=== PATIENT | male | born 1965 | race Caucasian/White ===

== ENCOUNTER 2022-01-13 19:17 | Emergency (ER) | payer BC ==
[2022-01-13 20:02] LABS: Absolute Neutrophil Ct (ANC) 6.97 x10^3/uL (1.4-6.9); Basophil (Absolute #) 0.02 x10^3/uL (0-0.4); Eosinophil % 1.6 % (0.00-5.0); Eosinophil (Absolute #) 0.14 x10^3/uL (0-0.5); Hematocrit 45.3 % (42-50); Lymphocyte (Absolute #) 0.95 x10^3/uL (1.0-4.6); Lymphocytes % 10.8 % (24.0-44.0); Mean Cell Volume 86.1 fL (78-100); Mean Corpuscular Hemoglobin 28.5 pg (26-32); Mean Corpuscular Hgb Concent. 33.1 g/dL (32-36); Mean Platelet Volume 9.7 fL (7.5-11.0); Monocyte (Absolute #) 0.71 x10^3/uL (0.0-1.3); Neutrophil % 79.1 % (36.0-66.0); Platelet Count 265 x10^3/uL (150-450); Red Blood Count 5.26 x10^6/uL (4.1-5.6); Red Cell Distribution Width 12.9 % (11.5-14.0); White Blood Count 8.8 x10^3/uL (4.0-10.5)
[2022-01-13 20:14] LABS: ALBUMIN 4.1 g/dL (3.5-5.0); ALKALINE PHOSPHATASE 90 U/L (38-126); ANION GAP 12.1 MEQ/L (5-15); BLOOD UREA NITROGEN 15 mg/dL (9-20); CHLORIDE 100 mmol/L (98-107); Calcium 9.3 mg/dL (8.4-10.2); Carbon Dioxide 31 mmol/L (22-30); Creatinine 1 0.87 mg/dL (0.66-1.25); EST GLOMERULAR FILTRATION RATE > 60.0 ML/MIN; Glucose 103 mg/dL (74-106); Potassium 3.8 mmol/L (3.5-5.1); SGOT/AST 27 U/L (17-59); SGPT/ALT 25 U/L (0-50); SODIUM 139 mmol/L (137-145); Total Protein 7.9 g/dL (6.3-8.2)
--- NOTE | 2022-01-13 20:18 | ERPHSYRPT ---
- History of Present Illness Source: patient Exam Limitations: no limitations Patient Subjective Stated Complaint: I fell last Sunday down some steps and the last 2 days my right leg has gotten tight and swollen. Triage Nursing Assessment: Pt c/o rt lower ext edema which occured about 2 days ago. Pt fell last Sunday and has a scrape to lateral rt lower ext and rt kn ee. Rt lower leg has gotten tight and swollen, pt denies any pain when walking on it, only has tenderness when touching it. Hx DVt to rt lower ext 2011. Physician History: 56 yo wm w R calf edema, erythema, and pain x 2-3 days. Pt states that he fell 1 week ago and has several abrasions on his lower leg. He also has a h/o DVT in his RLE in 2011 after R achilles surgery. He is not on an anticoagulant. Chest pain/dyspnea/fever are all denied. Method of Injury: fell Occurred: other (1wk/3days) Quality: aching Severity of Pain-Max: moderate Severity of Pain-Current: moderate Lower Extremities Pain: foot: right, ankle: right Modifying Factors: Improves With: nothing, movement Associated Symptoms: none Allergies/Adverse Reactions: oxytetracycline [From Terramycin] Allergy (Mild, Verified 01/13/22 19:35) Hives oxytetracycline HCl [From Terramycin] Allergy (Mild, Verified 01/13/22 19:35) Hives Home Medications: Losartan/Hydrochlorothiazide [Losartan-Hctz 50-12.5 mg Tab] 25 tab PO DAILY 12/27/11 [History] Aspirin EC 81 mg [Ecotrin 81 mg] 162 mg PO DAILY 10/28/12 [History] Amlodipine Besylate 5 mg [Norvasc 5 mg] 5 mg PO DAILY 01/13/22 [History] Cholecalciferol (Vitamin D3) [Vitamin D3] 125 mcg PO DAILY 01/13/22 [History] Fexofenadine HCl [Lia Allergy] 180 mg PO DAILY 01/13/22 [History] Hx Tetanus, Diphtheria Vaccination/Date Given: No Hx Influenza Vaccination/Date Given: No Hx Pneumococcal Vaccination/Date Given: No Immunizations Up to Date: No Travel Risk - International Travel Have you traveled outside of the country in past 3 weeks: No - Coronavirus Screening Are you exhibiting any of the following symptoms?: No Close contact with a COVID-19 positive Pt in past 14-21 Days: No - Vaccine Status Have you recieved a Covid-19 vaccination: Yes 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 - Review of Systems Constitutional: No Symptoms Eyes: No Symptoms Ears, Nose, & Throat: No Symptoms Respiratory: No Symptoms Cardiac: No Symptoms Abdominal/Gastrointestinal: No Symptoms Genitourinary Symptoms: No Symptoms Musculoskeletal: Injury Skin: No Symptoms, Cellulitis Neurological: No Symptoms Psychological: No Symptoms Endocrine: No Symptoms Hematologic/Lymphatic: No Symptoms Immunological/Allergic: No Symptoms - Past Medical History Pertinent Past Medical History: Yes Neurological History: No Pertinent History ENT History: No Pertinent History Cardiac History: Arrhythmia, Hypertension Respiratory History: No Pertinent History Endocrine Medical History: No Pertinent History Musculoskeletal History: Degenerative Disk Disease GI Medical History: Hernia History: No Pertinent History Psycho-Social History: No Pertinent History Male Reproductive Disorders: No Pertinent History - Past Surgical History Past Surgical History: Yes Neuro Surgical History: No Pertinent History Cardiac: No Pertinent History Respiratory: No Pertinent History Gastrointestinal: Hernia Repair Genitourinary: No Pertinent History Musculoskeletal: Orthopedic Surgery Male Surgical History: No Pertinent History Other Surgical History: 7 years old belly button repaired. rt wrist lt leg achilles tendon repair - Social History Smoking Status: Never smoker Exposure to second hand smoke: No Alcohol Use: Socially Drug Use: none Patient Lives Alone: Yes Significant Family History: no pertinent family hx - Nursing Vital Signs Nursing Vital Signs: Initial Vital Signs Temperature 98.2 F 01/13/22 19:23 Pulse Rate 72 01/13/22 19:23 Respiratory Rate 20 01/13/22 19:23 Blood Pressure 165/98 01/13/22 19:23 O2 Sat by Pulse Oximetry 98 01/13/22 19:23 Pain Scale Pain Intensity 0 Hypertensive - Physical Exam General Appearance: no apparent distress Eyes, Ears, Nose, Throat Exam: normal ENT inspection, TMs normal, pharynx normal, moist mucous membranes Neck Exam: normal inspection, non-tender, supple, full range of motion, No Brudzinski, No Kernig's, No meningismus, No carotid bruit Cardiovascular/Respiratory Exam: normal breath sounds, regular rate/rhythm, heart sounds normal Gastrointestinal/Abdominal Exam: non-tender, soft, no organomegaly Back Exam: normal inspection, normal range of motion, No CVA tenderness Hips Exam: bilateral: non-tender, normal inspection, normal range of motion, no evidence of injury Legs Exam: right leg: soft tissue tenderness (R pretibial edema, erythema, and TTP) Knees Exam: bilateral knee: non-tender, normal inspection, normal range of motion, no evidence of injury Ankle Exam: right ankle: swelling (Mild edema, erythema, and TTP) Foot Exam: bilateral foot: non-tender, normal inspection, normal range of motion, no evidence of injury Neuro/Tendon Exam: normal sensation, normal motor functions, normal tendon functions, responds to pain, no evidence tendon injury, No motor deficit, No sensory deficit Mental Status Exam: alert, oriented x 3, cooperative Skin Exam: other (R pre-tibial erythema) SpO2 Interpretation: normal SpO2: 98 O2 Delivery: Room Air - Course Nursing assessment & vital signs reviewed: Yes - Radiology Ultrasound Exam Venous Lower Extremity Ultrasound: Other (Neg for DVT per Tech) Ordered Tests: Active Orders 24 hr Category Date Time Status LOWER LEG Stat Exams 01/13/22 19:55 Completed VENOUS UNILAT/LIMITED EXTREMIT [US] Stat Exams 01/13/22 19:53 Taken CBC W DIFF Stat Lab 01/13/22 19:50 Completed CMP Stat Lab 01/13/22 19:50 Completed Lactic Acid Stat Lab 01/13/22 20:25 Completed Medication Summary Discontinued Medications Generic Name Dose Route Start Last Admin Trade Name Quinton PRN Reason Stop Dose Admin Amoxicillin/Clavulanate Potassium 875 mg 01/13/22 21:31 01/13/22 21:36 Amox Tr/Potassium Clavulanate 875 Mg Tablet PO 01/13/22 21:32 875 mg STAT ONE Administration Amoxicillin/Clavulanate Potassium Confirm 01/13/22 21:36 Amox Tr/Potassium Clavulanate 875 Mg Tablet Administered 01/13/22 21:37 Dose 875 mg .ROUTE .STK-MED ONE Trimethoprim/Sulfamethoxazole 1 tab 01/13/22 21:31 01/13/22 21:37 Smz/Tmp Ds Tablet 1 Tablet PO 01/13/22 21:32 1 tab STAT STA Administration Trimethoprim/Sulfamethoxazole Confirm 01/13/22 21:36 Smz/Tmp Ds Tablet 1 Tablet Administered 01/13/22 21:37 Dose 1 tab PO .STK-MED ONE Lab/Rad Data: Laboratory Result Diagrams 01/13/22 19:50 01/13/22 19:50 Laboratory Results 01/13/22 01/13/22 01/13/22 Range/Units 20:25 19:50 19:50 WBC 8.8 (4.0-10.5) x10^3/uL RBC 5.26 (4.1-5.6) x10^6/uL Hgb 15.0 (12.5-18.0) g/dL Hct 45.3 (42-50) % MCV 86.1 (78-100) fL MCH 28.5 (26-32) pg MCHC 33.1 (32-36) g/dL RDW 12.9 (11.5-14.0) % Plt Count 265 (150-450) x10^3/uL MPV 9.7 (7.5-11.0) fL Gran % 79.1 H (36.0-66.0) % Immature Gran % (Auto) 0.3 (0.00-0.4) % Nucleat RBC Rel Count 0.0 (0.00-0.1) % Eos # (Auto) 0.14 (0-0.5) x10^3/uL Immature Gran # (Auto) 0.03 (0.00-0.03) x10^3u/L Absolute Lymphs (auto) 0.95 L (1.0-4.6) x10^3/uL Absolute Monos (auto) 0.71 (0.0-1.3) x10^3/uL Absolute Nucleated RBC 0.00 (0.00-0.01) x10^3u/L Lymphocytes % 10.8 L (24.0-44.0) % Monocytes % 8.0 (0.0-12.0) % Eosinophils % 1.6 (0.00-5.0) % Basophils % 0.2 (0.0-0.4) % Absolute Granulocytes 6.97 H (1.4-6.9) x10^3/uL Basophils # 0.02 (0-0.4) x10^3/uL Sodium 139 (137-145) mmol/L Potassium 3.8 (3.5-5.1) mmol/L Chloride 100 (98-107) mmol/L Carbon Dioxide 31 H (22-30) mmol/L Anion Gap 12.1 (5-15) MEQ/L BUN 15 (9-20) mg/dL Creatinine 0.87 (0.66-1.25) mg/dL Estimated GFR > 60.0 ML/MIN Glucose 103 (74-106) mg/dL Lactic Acid 1.2 (0.4-2.0) Calcium 9.3 (8.4-10.2) mg/dL Total Bilirubin 2.10 H (0.2-1.3) mg/dL AST 27 (17-59) U/L ALT 25 (0-50) U/L Alkaline Phosphatase 90 (38-126) U/L Serum Total Protein 7.9 (6.3-8.2) g/dL Albumin 4.1 (3.5-5.0) g/dL - Progress Progress: improved Progress Note: 01/13/22 21:33 Bactrim DS po x1/Augmentin 875mg po x1 01/13/22 22:26 Pt's BP decreased during stay Counseled pt/family regarding: lab results, diagnosis, need for follow-up, rad results - Departure Departure Disposition: Home Clinical Impression: Cellulitis Condition: Stable Critical Care Time: No Referrals: CORNELIUS MELÉNDEZ MD [Primary Care Provider] - Follow up/PCP as directed Instructions: Cellulitis (Skin Infection), Adult ED Additional Instructions: Elevate leg Continue with Augmentin and bactrim Follow up with your family MD on Sunday Return to ER for increasing pain/redness/swelling/temperature greater than 100.5 Prescriptions: Amox Tr/Potass Clav. 875 mg [Augmentin 875-125 Tablet] 1 each PO BID 10 Days #20 tablet Sulfamethoxazole/Trimethoprim [Bactrim Ds Tablet] 1 each PO BID 10 Days #20 tablet
[2022-01-13] MEDS ORDERED: Augmentin 875-125 Tablet PO ONE (21:31)
[2022-01-13] MEDS ORDERED: BACTRIM DS TABLET PO STA (21:31)
[2022-01-13] MEDS ORDERED: Augmentin 875-125 Tablet ONE (21:36)
[2022-01-13] MEDS ORDERED: BACTRIM DS TABLET PO ONE (21:36)
[2022-01-13 21:57] VITALS: BP 163/90; PULSE 75
[2022-01-13 22:26] VITALS: O2SAT 98
--- NOTE | 2022-01-13 22:27 | XRAY ---
Indication: Swelling and erythema following fall. Comparison: None 2 view right lower leg demonstrates mild/moderate tricompartmental knee degenerative changes, small spurring tibial tuberosity, large posterior/small plantar heel spurs, and diffuse lower leg swelling/edema. No other bony, articular, or soft tissue abnormalities.
--- NOTE | 2022-01-13 22:33 | XRAY ---
Indication: Pain and swelling. Two-dimensional sonogram and color Doppler imaging of the major venous vessels of the right leg performed. Comparison: October 28, 2012 No thrombus seen in the examined deep venous vessels of the right leg including greater saphenous vein. Veins demonstrate normal compressibility. Venous waveforms are normal with and without augmentation. Impression: Right leg negative for DVT. Comment: Preliminary report given.
== END 2022-01-13 21:55 | disposition home or self-care (01) ==
LOC: ED 19:17
DX: L03.115 Cellulitis of right lower limb (principal); M79.661 Pain in right lower leg; Z86.718 Personal history of other venous thrombosis and embolism; I10 Essential (primary) hypertension; Z79.899 Other long term (current) drug therapy
CPT/HCPCS: 36000; 36415; 73590; 80053; 83605; 85025; 93971; 99284; A9270-GY

== ENCOUNTER 2023-08-09 07:14 | Day surgery (SDC) | payer BC ==
--- NOTE | 2023-08-02 15:02 | HP ---
DATE OF SURGERY: 08/09/2023 HISTORY OF PRESENT ILLNESS: The patient is a 57-year-old male presents with low abdominal pain. He had a CT scan showing periumbilical hernia, hiatal hernia and a tiny right inguinal hernia. He has an incarcerated ventral hernia bulge with tenderness. He has a history of ventral hernia repair with mesh in 2015. He has some lower abdominal pain after treatment for some recent diverticulitis. He has not had a colonoscope to date. PAST MEDICAL HISTORY: Gout. Hypertension. Diverticulitis. Deep vein thrombosis. First degree AV block. PAST SURGICAL HISTORY: Wrist surgery. Ventral hernia repair. Achilles tendon repair. ALLERGIES: OXYTETRACYCLINE. MEDICATIONS: Zinc, Lisinopril, fexofenadine, aspirin, amlodipine, allopurinol. FAMILY HISTORY: None. SOCIAL HISTORY: No smoking. Occasional alcohol. REVIEW OF SYSTEMS: CONSTITUTIONAL: Denies fever or chills. CHEST: Denies shortness of breath. CVS: Denies chest pain. ABDOMEN: Reports abdominal pain. PHYSICAL EXAMINATION: GENERAL: No acute distress. CHEST: Nonlabored. No shortness of breath. CVS: Regular rate and rhythm. ABDOMEN: Soft with incarcerated ventral hernia. IMPRESSION: 1) Recent diverticulitis. 2) Incarcerated ventral hernia screening. PLAN: Will set up colonoscopy with Dr. Jesus Gomes. I also gave this gentleman Becky and Sejal before his exam. As dictated by Aleyda Coronel NP.
[2023-08-09] MEDS ORDERED: Lactated Ringers 1,000 ML IV SCH (07:30)
[2023-08-09] MEDS ORDERED: Lactated Ringers 1,000 ML IV ONE (07:46)
[2023-08-09] MEDS ORDERED: Versed 2 MG/2 ML Injection ONE (09:57)
[2023-08-09] MEDS ORDERED: DIPRIVAN 200 MG/20 ML IV ONE ×2 (09:57→10:05)
[2023-08-09] MEDS ORDERED: GlucaGen 1 MG ONE (10:06)
[2023-08-09 10:17] VITALS: TEMP 98.5
[2023-08-09 10:24] VITALS: RESP 16
[2023-08-09 10:32] VITALS: BP 126/80; O2SAT 96
--- NOTE | 2023-08-09 10:33 | OP ---
SURGERY DATE/TIME: 08/09/2023 1003 PREOPERATIVE DIAGNOSIS: Abdominal pain. POSTOPERATIVE DIAGNOSIS: Abdominal pain. PROCEDURE: Colonoscopy complete to cecum. SURGEON: Jesus Gomes M.D. ANESTHESIA: MAC. INDICATION: The patient does have incarcerated ventral hernia which we are considering working on. He has a small inguinal hernia of no significance. He is quite solid. He has not had a recent colonoscopic examination. He has some unexplained abdominal pain. DESCRIPTION OF PROCEDURE: He was taken to endoscopy. Left lateral decubitus position. Anal digital examination satisfactory. Scope introduced. The scope advanced to the cecum. Base of the cecum, ileocecal valve, appendiceal orifice was normal. Ascending 4 inches up in the ileocecal valve was a 1.2 cm polyp was taken with hot biopsy forceps to extinction this is a very nice polyp. Hepatic flexure, transverse, splenic, descending, sigmoid, rectum, anus satisfactory. Follow up five years. Return to office in two weeks for path on his polyp and consideration of ventral hernia.
[2023-08-09 10:41] VITALS: PULSE 62
== END 2023-08-09 10:41 | disposition home or self-care (01) ==
LOC: SDC 07:14
PROVIDERS: ATTEND Surgery
DX: D12.2 Benign neoplasm of ascending colon (principal); R10.32 Left lower quadrant pain; K43.6 Other and unspecified ventral hernia with obstruction, without gangrene
CPT/HCPCS: 93005; J1610; J2250; J2704

== ENCOUNTER 2023-09-20 11:40 | Emergency (ER) | payer BC ==
[2023-09-20 12:04] VITALS: RESP 20; TEMP 98.8
--- NOTE | 2023-09-20 12:16 | ERPHSYRPT ---
- History of Present Illness Time Seen by Provider: 09/20/23 11:46 Historian: patient Exam Limitations: no limitations Patient Subjective Stated Complaint: C/O abdominal pain that started this am prior to going into work that has become worse. Patient left work to come to the ER. He describes the pain as constant cramping. Denies diarrhea. Vomitted X 1 prior to coming into the ER. Triage Nursing Assessment: Patient ambulated back to ER without difficulties. He is alert and oriented. No SOB. Skin tone normal but face is flushed. BRANT JOHNSON. Physician History: 58 years old male with history of hypertension, irritable bowel syndrome, abdominal wall hernias presented in the ER with complains of lower abdominal/periumbilical area pain sudden onset this morning prior to going to work. Gradual worsening, currently 8/10 intensity, aggravated with palpation movements and associated nausea with 1 episode of nonprojectile, nonbilious vomiting without hematemesis. Denies any diarrhea. Patient reports taking his dicyclomine which did not help. Denies any fever or chills. No abdominal distention. Allergies/Adverse Reactions: oxytetracycline [From Terramycin] Allergy (Mild, Verified 09/20/23 11:51) Hives oxytetracycline HCl [From Terramycin] Allergy (Mild, Verified 09/20/23 11:51) Hives Home Medications: Amlodipine Besylate 5 mg [Norvasc 5 mg] 5 mg PO DAILY 01/13/22 [History] Allopurinol 300 mg [Zyloprim 300 mg] 300 mg PO HS 07/10/23 [History] Lisinopril/Hydrochlorothiazide [Lisinopril-Hctz 20-25 mg Tab] 1 each PO DAILY 07/10/23 [History] Dicyclomine HCl 20 mg [Bentyl 20 mg] 1 tab PO QID 09/20/23 [History] Hx Tetanus, Diphtheria Vaccination/Date Given: Yes Hx Influenza Vaccination/Date Given: No Hx Pneumococcal Vaccination/Date Given: No Immunizations Up to Date: Yes Travel Risk - International Travel Have you traveled outside of the country in past 3 weeks: No - Coronavirus Screening Are you exhibiting any of the following symptoms?: No Close contact with a COVID-19 positive Pt in past 14-21 Days: No - Vaccine Status Have you recieved a Covid-19 vaccination: Yes [employer]: Moderna - Vaccination Dates Date of 2cond Vaccination (if applicable): ? - Review of Systems Constitutional: No Symptoms Eyes: No Symptoms Ears, Nose, & Throat: No Symptoms Respiratory: No Symptoms Cardiac: No Symptoms Abdominal/Gastrointestinal: Abdominal Pain, Nausea, Vomiting Genitourinary Symptoms: No Symptoms Musculoskeletal: No Symptoms Skin: No Symptoms Neurological: No Symptoms Psychological: No Symptoms Endocrine: No Symptoms Hematologic/Lymphatic: No Symptoms Immunological/Allergic: No Symptoms - Past Medical History Pertinent Past Medical History: Yes Neurological History: No Pertinent History ENT History: No Pertinent History Cardiac History: Hypertension Respiratory History: No Pertinent History Endocrine Medical History: No Pertinent History Musculoskeletal History: Degenerative Disk Disease GI Medical History: GERD, Hernia History: No Pertinent History Psycho-Social History: No Pertinent History Male Reproductive Disorders: No Pertinent History - Past Surgical History Past Surgical History: Yes Neuro Surgical History: No Pertinent History Cardiac: No Pertinent History Respiratory: No Pertinent History Gastrointestinal: Hernia Repair Genitourinary: No Pertinent History Musculoskeletal: Orthopedic Surgery Male Surgical History: No Pertinent History Other Surgical History: 7 years old belly button repaired. rt wrist lt leg achilles tendon repair, colonscopy on 08/09/23 - Social History Smoking Status: Never smoker Exposure to second hand smoke: No Alcohol Use: Socially Drug Use: none Patient Lives Alone: Yes Significant Family History: no pertinent family hx - Nursing Vital Signs Nursing Vital Signs: Initial Vital Signs Temperature 98.8 F 09/20/23 11:41 Pulse Rate 85 09/20/23 11:41 Respiratory Rate 20 09/20/23 11:41 Blood Pressure 179/105 09/20/23 11:41 O2 Sat by Pulse Oximetry 95 09/20/23 11:41 Pain Scale Pain Intensity 9 - Physical Exam General Appearance: no apparent distress, alert Eye Exam: PERRL/EOMI Ears, Nose, Throat Exam: normal ENT inspection Neck Exam: normal inspection Respiratory Exam: normal breath sounds, lungs clear Cardiovascular Exam: regular rate/rhythm, normal heart sounds Gastrointestinal/Abdomen Exam: normal bowel sounds, tenderness (Lower abdomen especially in the right lower quadrant. Mild guarding), guarding Back Exam: normal inspection, normal range of motion Extremity Exam: normal inspection, normal range of motion Neurologic Exam: alert, oriented x 3, cooperative Skin Exam: normal color SpO2 Interpretation: normal SpO2: 97 O2 Delivery: Room Air Ordered Tests: Active Orders 24 hr Category Date Time Status IV Insertion STAT Care 09/20/23 12:11 Active NPO (ED) STAT Care 09/20/23 12:11 Active ABDOMEN AND PELVIS W CONTRAST [CT] Stat Exams 09/20/23 12:11 Completed CBC W DIFF Stat Lab 09/20/23 12:20 Completed CMP Stat Lab 09/20/23 12:20 Completed LIPASE Stat Lab 09/20/23 12:20 Completed Lactic Acid Stat Lab 09/20/23 12:25 Completed UA W/RFX UR CULTURE Stat Lab 09/20/23 14:06 Completed Medication Summary Discontinued Medications Generic Name Dose Route Start Last Admin Trade Name Freq PRN Reason Stop Dose Admin Sodium Chloride 1,000 mls @ 999 mls/hr 09/20/23 12:11 09/20/23 14:11 Sodium Chloride 0.9% 1000 Ml IV 09/20/23 13:11 Infused .Q1H1M STA Infusion Sodium Chloride Confirm 09/20/23 12:19 Sodium Chloride 0.9% 1000 Ml Administered 09/20/23 12:20 Dose 1,000 mls @ ud .ROUTE .STK-MED ONE Morphine Sulfate 4 mg 09/20/23 12:11 09/20/23 12:27 Morphine Sulfate 4 Mg/Ml Injection IV 09/20/23 12:12 4 mg STAT ONE Administration Morphine Sulfate Confirm 09/20/23 12:19 Morphine Sulfate 4 Mg/Ml Injection Administered 09/20/23 12:20 Dose 4 mg .ROUTE .STK-MED ONE Ondansetron HCl 4 mg 09/20/23 12:11 09/20/23 12:25 Ondansetron Hcl 4 Mg/2 Ml Vial IV 09/20/23 12:12 4 mg STAT ONE Administration Ondansetron HCl Confirm 09/20/23 12:19 Ondansetron Hcl 4 Mg/2 Ml Vial Administered 09/20/23 12:20 Dose 4 mg .ROUTE .STK-MED ONE Lab/Rad Data: Laboratory Result Diagrams 09/20/23 12:20 09/20/23 12:20 Laboratory Results 09/20/23 09/20/23 09/20/23 Range/Units 14:06 12:25 12:20 WBC (4.0-10.5) x10^3/uL RBC (4.1-5.6) x10^6/uL Hgb (12.5-18.0) g/dL Hct (42-50) % MCV (78-100) fL MCH (26-32) pg MCHC (32-36) g/dL RDW (11.5-14.0) % Plt Count (150-450) x10^3/uL MPV (7.5-11.0) fL Gran % (36.0-66.0) % Immature Gran % (Auto) (0.00-0.4) % Nucleat RBC Rel Count (0.00-0.1) % Eos # (Auto) (0-0.5) x10^3/uL Immature Gran # (Auto) (0.00-0.03) x10^3u/L Absolute Lymphs (auto) (1.0-4.6) x10^3/uL Absolute Monos (auto) (0.0-1.3) x10^3/uL Absolute Nucleated RBC (0.00-0.01) x10^3u/L Lymphocytes % (24.0-44.0) % Monocytes % (0.0-12.0) % Eosinophils % (0.00-5.0) % Basophils % (0.0-0.4) % Absolute Granulocytes (1.4-6.9) x10^3/uL Basophils # (0-0.4) x10^3/uL Sodium 137 (135-145) mmol/L Potassium 3.5 (3.5-5.1) mmol/L Chloride 101 (98-107) mmol/L Carbon Dioxide 24 (22-30) mmol/L Anion Gap 16.4 H (5-15) MEQ/L BUN 16 (9-20) mg/dL Creatinine 0.75 (0.66-1.25) mg/dL Estimated GFR 105.9 ML/MIN Glucose 128 H (74-106) mg/dL Lactic Acid 1.3 (0.4-2.0) Calcium 9.2 (8.4-10.2) mg/dL Total Bilirubin 1.70 H (0.2-1.3) mg/dL AST 28 (17-59) U/L ALT 32 (0-50) U/L Alkaline Phosphatase 102 (38-126) U/L Serum Total Protein 7.9 (6.3-8.2) g/dL Albumin 4.5 (3.5-5.0) g/dL Lipase 90 (23-300) U/L Urine Color Yellow (Yellow) Urine Appearance Clear (Clear) Urine pH 5.5 (4.6-8.0) Ur Specific [place] 1.025 (1.005-1.030) Urine Protein Negative (Negative) Urine Glucose (UA) Negative (Negative) mg/dL Urine Ketones Negative (Negative) Urine Blood Negative (Negative) Urine Nitrite Negative (Negative) Urine Bilirubin Negative (Negative) Urine Urobilinogen 0.2 (0.2) mg/dL Ur Leukocyte Esterase Negative (Negative) U Hyaline Cast (Auto) NONE SEEN (0-2) /LPF Urine Microscopic RBC 0-2 (0-5) /HPF Urine Microscopic WBC 0-2 (0-5) /HPF Ur Epithelial Cells None Seen (None Seen) /HPF Urine Bacteria None Seen (None Seen) /HPF Urine Culture Reflexed NO (NO) 09/20/23 Range/Units 12:20 WBC 8.8 (4.0-10.5) x10^3/uL RBC 5.93 H (4.1-5.6) x10^6/uL Hgb 16.9 (12.5-18.0) g/dL Hct 49.7 (42-50) % MCV 83.8 (78-100) fL MCH 28.5 (26-32) pg MCHC 34.0 (32-36) g/dL RDW 12.6 (11.5-14.0) % Plt Count 274 (150-450) x10^3/uL MPV 9.5 (7.5-11.0) fL Gran % 80.8 H (36.0-66.0) % Immature Gran % (Auto) 0.3 (0.00-0.4) % Nucleat RBC Rel Count 0.0 (0.00-0.1) % Eos # (Auto) 0.19 (0-0.5) x10^3/uL Immature Gran # (Auto) 0.03 (0.00-0.03) x10^3u/L Absolute Lymphs (auto) 1.01 (1.0-4.6) x10^3/uL Absolute Monos (auto) 0.43 (0.0-1.3) x10^3/uL Absolute Nucleated RBC 0.00 (0.00-0.01) x10^3u/L Lymphocytes % 11.5 L (24.0-44.0) % Monocytes % 4.9 (0.0-12.0) % Eosinophils % 2.2 (0.00-5.0) % Basophils % 0.3 (0.0-0.4) % Absolute Granulocytes 7.12 H (1.4-6.9) x10^3/uL Basophils # 0.03 (0-0.4) x10^3/uL Sodium (135-145) mmol/L Potassium (3.5-5.1) mmol/L Chloride (98-107) mmol/L Carbon Dioxide (22-30) mmol/L Anion Gap (5-15) MEQ/L BUN (9-20) mg/dL Creatinine (0.66-1.25) mg/dL Estimated GFR ML/MIN Glucose (74-106) mg/dL Lactic Acid (0.4-2.0) Calcium (8.4-10.2) mg/dL Total Bilirubin (0.2-1.3) mg/dL AST (17-59) U/L ALT (0-50) U/L Alkaline Phosphatase (38-126) U/L Serum Total Protein (6.3-8.2) g/dL Albumin (3.5-5.0) g/dL Lipase (23-300) U/L Urine Color (Yellow) Urine Appearance (Clear) Urine pH (4.6-8.0) Ur Specific [place] (1.005-1.030) Urine Protein (Negative) Urine Glucose (UA) (Negative) mg/dL Urine Ketones (Negative) Urine Blood (Negative) Urine Nitrite (Negative) Urine Bilirubin (Negative) Urine Urobilinogen (0.2) mg/dL Ur Leukocyte Esterase (Negative) U Hyaline Cast (Auto) (0-2) /LPF Urine Microscopic RBC (0-5) /HPF Urine Microscopic WBC (0-5) /HPF Ur Epithelial Cells (None Seen) /HPF Urine Bacteria (None Seen) /HPF Urine Culture Reflexed (NO) - Progress Progress: improved, re-examined Progress Note: 09/20/23 16:07 58 years old is evaluated for abdominal pain. He is given symptomatic treatment with morphine and fluids, on reevaluation his pain is completely resolved. Workup showed normal white count, fairly unremarkable chemistries, no UTI. I have obtained CT abdomen pelvis with contrast which is negative for any obstruction/incarcerated hernia, does have fat-containing periumbilical hernia with minimal inflammation but patient pain is more in the lower abdomen. Has no other acute intra-abdominal/pelvic findings but chronic. I believe patient has previously surgeries done and probably have some adhesions which is causing his pain. At this point I do not think has any acute emergency that needs immediate surgical consultation. Patient is following up with Dr. Gomes group and per him is being planned to have laparoscopy for further evaluation of this pain as it has been going on for quite some time. I have recommended taking Tylenol ibuprofen and keep appointment with general surgery. At this point I do not think he needs any other workup in the ER and is being discharged. Discussed signs symptoms of worsening needing return to ER which she seems understanding. Counseled pt/family regarding: lab results, diagnosis, need for follow-up, rad results Medical Desision Making - Diagnostic Testing Diagnostic test were ordered, analyzed, and reviewed by me: Yes Radiological Interpretation: Reviewed by me - Risk of complications The pt has a mod risk of morbidity or mortality based on: Need for prescription drug management - Departure Departure Disposition: Home Clinical Impression: Lower abdominal pain, Umbilical hernia without obstruction or gangrene Condition: Stable Critical Care Time: No Referrals: CORNELIUS MELÉNDEZ MD [Primary Care Provider] - Follow up with PCP 1 day MARY GOMES MD [ACTIVE STAFF] - Follow up/PCP as directed (Call in the morning for appointment for reevaluation) Instructions: Severe Abdominal Pain, Adult (DC) Additional Instructions: Take Tylenol/ibuprofen as needed for pain. Follow-up with primary care and general surgery for reevaluation. Return to ER for intractable abdominal pain, nausea vomiting/fever chills etc. Prescriptions: Ibuprofen 600 mg PO Q6HPRN PRN 10 Days #20 tablet PRN Reason: Pain
[2023-09-20] MEDS ORDERED: Zofran 4 MG/2 ML VIAL ONE (12:19)
[2023-09-20] MEDS ORDERED: Sodium Chloride 0.9% 1000 ML 1,000 ML ONE (12:19)
[2023-09-20] MEDS ORDERED: MORPHINE SULFATE 4 MG INJ ONE (12:19)
[2023-09-20] MEDS: Sodium Chloride 0.9% 1000 ML 1,000 ML IV STA (12:22)
[2023-09-20] MEDS: Zofran 4 MG/2 ML VIAL IV ONE (12:25)
[2023-09-20 12:27] LABS: Absolute Neutrophil Ct (ANC) 7.12 x10^3/uL (1.4-6.9); BASOPHIL % 0.3 % (0.0-0.4); Basophil (Absolute #) 0.03 x10^3/uL (0-0.4); Eosinophil % 2.2 % (0.00-5.0); Eosinophil (Absolute #) 0.19 x10^3/uL (0-0.5); Hematocrit 49.7 % (42-50); Hemoglobin 16.9 g/dL (12.5-18.0); IMMATURE GRAN # 0.03 x10^3u/L (0.00-0.03); IMMATURE GRAN % 0.3 % (0.00-0.4); Lymphocyte (Absolute #) 1.01 x10^3/uL (1.0-4.6); Lymphocytes % 11.5 % (24.0-44.0); Mean Cell Volume 83.8 fL (78-100); Mean Corpuscular Hemoglobin 28.5 pg (26-32); Mean Platelet Volume 9.5 fL (7.5-11.0); Monocyte (Absolute #) 0.43 x10^3/uL (0.0-1.3); Monocytes % 4.9 % (0.0-12.0); Neutrophil % 80.8 % (36.0-66.0); Platelet Count 274 x10^3/uL (150-450); Red Blood Count 5.93 x10^6/uL (4.1-5.6); Red Cell Distribution Width 12.6 % (11.5-14.0); White Blood Count 8.8 x10^3/uL (4.0-10.5)
[2023-09-20] MEDS: MORPHINE SULFATE 4 MG INJ IV ONE (12:27)
[2023-09-20 12:42] LABS: ALBUMIN 4.5 g/dL (3.5-5.0); ANION GAP 16.4 MEQ/L (5-15); BILIRUBIN,TOTAL 1.7 mg/dL (0.2-1.3); Calcium 9.2 mg/dL (8.4-10.2); Creatinine 1 0.75 mg/dL (0.66-1.25); EST GLOMERULAR FILTRATION RATE 105.9 ML/MIN; Potassium 3.5 mmol/L (3.5-5.1); Total Protein 7.9 g/dL (6.3-8.2)
[2023-09-20 13:18] VITALS: BP 179/107; PULSE 76
--- NOTE | 2023-09-20 14:10 | XRAY ---
Indication: Umbilical pain. Multiple contiguous axial images obtained through the abdomen and pelvis using 80 cc Isovue 370 contrast. Comparison: June 08, 2023 Lung bases again demonstrate minimal dependent atelectasis. Heart is not enlarged. Stable small hiatal hernia. Noncontrasted stomach and bowel loops appear not obstructed with normal appendix. Scattered descending and sigmoid diverticulosis without diverticulitis. Stable 21.4 summative fatty hepatomegaly, 16 cm splenomegaly, and a few small bilateral renal cortical cysts. No free fluid/air. Remaining liver, gallbladder, pancreas, spleen, adrenal glands, kidneys, ureters, and bladder are unremarkable. Again minimal aortoiliac calcifications. AAA or pathologic retroperitoneal lymphadenopathy. Osseous structures intact again with L4-L5 degenerative disc disease. Continued enlarging 2.1 cm wide right periumbilical fatty ventral hernia, previously 1.5 cm. Herniated omental fat now demonstrates mild induration suggesting inflammation/irritation. Stable small fatty right inguinal hernia. Impression: 1. Slightly enlarging right periumbilical fatty ventral hernia. Herniated fat now demonstrates mild inflammation/irritation. Stable small fatty right inguinal hernia. 2. Again chronic findings including small hiatal hernia, bilateral renal cysts, fatty hepatomegaly, splenomegaly, colonic diverticulosis, arteriosclerotic disease, and L4-L5 degenerative disc disease.
[2023-09-20 14:21] LABS: Appearance Clear (Clear); Bacteria None Seen /HPF (None Seen); Bilirubin Negative (Negative); Blood Negative (Negative); Epithelial Cells None Seen /HPF (None Seen); Glucose, Urine Negative (Negative); Hyaline Casts NONE SEEN /LPF (0-2); Ketones Negative (Negative); Leukocyte Esterase Negative (Negative); Nitrite Negative (Negative); Ph 5.5 (4.6-8.0); Protein,Urine Dip Negative (Negative); RBC 0-2 /HPF (0-5); Specific Gravity 1.025 (1.005-1.030); Urobilinogen 0.2 mg/dL (0.2); WBC 0-2 /HPF (0-5)
[2023-09-20 14:22] LABS: ADD URINE CULTURE? NO (NO)
[2023-09-20 16:11] VITALS: O2SAT 97
== END 2023-09-20 16:58 | disposition home or self-care (01) ==
LOC: ED 11:40
DX: K42.9 Umbilical hernia without obstruction or gangrene (principal); R10.30 Lower abdominal pain, unspecified; R11.2 Nausea with vomiting, unspecified; I10 Essential (primary) hypertension; Z79.899 Other long term (current) drug therapy
CPT/HCPCS: 36000; 36415; 74177; 80053; 81001; 83605; 83690; 85025; 96374; 96375; 99284; J2270; J2405